=== PATIENT | male | born 1955 | race Caucasian/White ===

== ENCOUNTER 2017-11-11 09:57 | Day surgery (SDC) | payer BC ==
[2017-11-11] MEDS ORDERED: LIDOCAINE 1% W/EPI 1:200,000 MPF 30ML SQ ONE (09:58)
[2017-11-11] MEDS ORDERED: DIAZEPAM 5 MG TABLET PO ONE (09:58)
--- NOTE | 2017-11-12 05:52 | Operative Note ---
DATE OF SURGERY: 11/11/2017 PREOPERATIVE DIAGNOSIS: RIGHT CARPAL TUNNEL SYNDROME. POSTOPERATIVE DIAGNOSIS: RIGHT CARPAL TUNNEL SYNDROME. PROCEDURE: Right carpal tunnel release. STAFF SURGEON: Con Carson MD ANESTHESIA: Local. PREPARATION: ChloraPrep. INDIVIDUAL CONSIDERATIONS: None. PROCEDURE: The patient was taken to the operating room and placed supine on the operating table. His right arm was prepped and draped in the usual fashion. The patient had 1% Lidocaine with epinephrine infiltrated along the longitudinal wrist crease volarly. The limb was elevated and the tourniquet was then inflated to 250 mmHg. The patient had an incision along the longitudinal wrist crease. Sharp dissection was carried down through the skin and subcutaneous tissues. Small veins were coagulated with a Bovie. Sharp dissection was carried down through the palmar fascia, through the small adductor brevis, and then through the transverse metacarpal fascia distally to the superficial arch and recurrent branch proximally to the antebrachial fascia. The median nerve was obviously contused and hourglass shaped, but otherwise there were no tumors present. The tourniquet was let down and hemostasis was obtained with the Bovie. After irrigation, the skin was approximated with interrupted #4-0 nylon in a vertical mattress fashion, and a sterile bulky compressive hand dressing was applied. The patient tolerated the procedure well. Needle and sponge counts were correct. Estimated blood loss was minimal and he was taken back to Recovery in good condition. There were no complications. cc: Bee Contreras D.O. JOB NUMBER: [id number] MTDD
== END 2017-11-11 12:10 | disposition home or self-care (01) ==
LOC: SUR 09:57
PROVIDERS: ATTEND Orthopaedic Surgery
DX: G56.01 Carpal tunnel syndrome, right upper limb (principal)